=== PATIENT | female | born 1970 | race American Indian/Alaskan Native ===

== ENCOUNTER 2016-11-10 07:14 | Emergency (ER) | payer OTHER ==
[2016-11-10 07:28] VITALS: BP 131/89
--- NOTE | 2016-11-10 08:36 | XRay Report ---
LEFT KNEE, 2 views: History: Left knee injury. The bony architecture is intact without evidence of fracture or dislocation. No significant soft tissue abnormality is seen. IMPRESSION: Normal left knee.
--- NOTE | 2016-11-10 08:37 | XRay Report ---
LEFT WRIST, 2 views: HISTORY: Left wrist injury. Routine views demonstrate the carpal bones to be well mineralized with well preserved bony mineralization and interosseous joint spaces. The carpal and adjacent articular bones have normal contours. The surrounding soft tissues are unremarkable. IMPRESSION: Normal study.
--- NOTE | 2016-11-10 08:37 | XRay Report ---
LEFT HAND, 2 views: History: Left hand injury. The bony architecture is intact. Bony alignment is normal. No soft tissue abnormalities are seen. The joint spaces appear preserved. IMPRESSION: Normal left hand.
--- NOTE | 2016-11-10 08:38 | XRay Report ---
LEFT SHOULDER: History: Left shoulder injury. Routine views demonstrate normal bony and soft tissue structures with normal joint alignment of the shoulder. IMPRESSION: Normal study.
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
[2016-11-10] MEDS ORDERED: MOTRIN PO ONE (09:00)
== END 2016-11-10 09:28 | disposition home or self-care (01) ==
LOC: ED 07:14
DX: S46.912A Strain of unspecified muscle, fascia and tendon at shoulder and upper arm level, left arm, initial encounter (principal); S63.502A Unspecified sprain of left wrist, initial encounter; S83.92XA Sprain of unspecified site of left knee, initial encounter; F32.9 Major depressive disorder, single episode, unspecified; X58.XXXA Exposure to other specified factors, initial encounter; Y93.9 Activity, unspecified; Y92.9 Unspecified place or not applicable; Y99.9 Unspecified external cause status